=== PATIENT | female | born 2005 | race African-American/Black ===

== ENCOUNTER 2025-05-05 00:52 | Emergency (ER) | payer OTHER ==
[~2025-05-05] VITALS: Ht 175.3 cm; Wt 77.3 kg
[2025-05-05 01:12] VITALS: TEMP 98.1
[2025-05-05 01:29] LABS: PLATELET COUNT (AUTO) 315 K/uL (150-450); RED BLOOD CELL COUNT(AUTO) 3.41 MIL/uL (4.00-5.20); RED CELL DISTRIBUTION WIDTH 13.1 % (11.5-14.5); WHITE BLOOD COUNT (AUTO) 9.2 K/uL (4.5-11.0)
[2025-05-05 01:40] LABS: CALCIUM, TOTAL 9.0 mg/dL (8.8-10.5); CREATININE 0.65 mg/dL (0.60-1.30); GLOMERULAR FILTR. RATE CALC > 60 mL/min (>60); GLUCOSE,RANDOM 88 mg/dL (70-110); SODIUM SERUM 135 mmol/L (136-145); UREA NITROGEN, BLOOD 6 mg/dL (7-18)
[2025-05-05 01:45] VITALS: BP 116/68; PULSE 88; RESP 16; O2SAT 99
[2025-05-05 01:49] LABS: TROPONIN I-HIGH SENSITIVITY Less Than 4 ng/L (<51)
[2025-05-05] MEDS: ACETAMINOPHEN 325 MG TABLET PO ONE (02:00)
== END 2025-05-05 06:02 | disposition home or self-care (01) ==
LOC: EMS 01:09
DX: O26.892 Other specified pregnancy related conditions, second trimester (principal); N89.8 Other specified noninflammatory disorders of vagina; R07.89 Other chest pain; Z3A.23 23 weeks gestation of pregnancy
CPT/HCPCS: 80048; 84484; 84702; 85025; 93005; 99284